=== PATIENT | male | born 1965 | race Two or more races ===

== ENCOUNTER 2020-03-23 10:00 | Emergency (ER) | payer SELFPAY ==
[~2020-03-23] VITALS: Ht 172.7 cm; Wt 77.1 kg
[2020-03-23] MEDS ORDERED: Thiamine HCl 100 MG in D5W 55 ML IVPB STA (10:08)
[2020-03-23 10:10] VITALS: BP 146/99
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
[2020-03-23] MEDS ORDERED: Bacitracin Oint UD TOPIC ONE (10:15)
[2020-03-23] MEDS ORDERED: Tetanus/Diptheria/Pertussis IM ONE (10:15)
--- NOTE | 2020-03-23 10:15 | NUR ---
ED Nurse Note: Patient was BIBA R [address] with ETOH complain. Patient presented with strong smell of alcohol, AAO x1, VSS at this time.
--- NOTE | 2020-03-23 10:25 | NUR ---
ED Nurse Note: IV line was established on right AC 20ga, blood and urine sent to lab
--- NOTE | 2020-03-23 11:15 | Diagnostic Imaging Report ---
Indications: Altered mental status Technique: Spiral acquisitions obtained through the brain. Angled axial and coronal 5 x 5 mm slices were reconstructed. Total dose length product 1040 mGycm. CTDI vol(s) 53 mGy. Dose reduction achieved using automated exposure control Comparison: None. Findings: There is a left convexity craniotomy/craniectomy defect. There is mild encephalomalacia of the anterior left temporal lobe. No acute intracranial hemorrhage or edema. No mass effect nor midline shift. Normal villegas-white differentiation. There is mild age-related enlargement of the ventricles and extra axial CSF spaces. The visualized orbits and sinuses are unremarkable. Impression: Postsurgical changes on the left. Negative for acute intracranial bleed or mass effect Mild age-related volume loss The CT scanner at [facility] is accredited by the [employer] and the scans are performed using protocols designed to limit radiation exposure to as low as reasonably achievable to attain images of sufficient resolution adequate for diagnostic evaluation.
[2020-03-23 11:25] LABS: APPEARANCE,URINE CLEAR; BILIRUBIN, URINE NEGATIVE (NEGATIVE); COLOR,URINE PALE YELLOW; GLUCOSE, URINE (UA) NEGATIVE (NEGATIVE); KETONES,URINE NEGATIVE (NEGATIVE); LEUKOCYTE ESTERASE ,URINE NEGATIVE (NEGATIVE); NITRITE,URINE NEGATIVE (NEGATIVE); PH,URINE 6 (4.5-8.0); PROTEIN,URINE 2+ (NEGATIVE); UROBILINOGEN,URINE NORMAL MG/DL (0.0-1.0)
[2020-03-23 11:28] LABS: HEMOGLOBIN 11.8 G/DL (14.2-18.0); MEAN CORPUSCULAR VOLUME 100 FL (80-99); PLATELET COUNT 97 K/UL (150-450); RED CELL DISTRIBUTION WIDTH 14.9 % (11.6-14.8); WHITE BLOOD COUNT 4.6 K/UL (4.8-10.8)
[2020-03-23 11:37] LABS: ANION GAP 9 mmol/L (5-15); BLOOD UREA NITROGEN 7 mg/dL (7-18); CALCIUM 8.1 MG/DL (8.5-10.1); CARBON DIOXIDE 30 MMOL/L (21-32); CHLORIDE 103 MMOL/L (98-107); CREATININE 0.7 MG/DL (0.55-1.30); POTASSIUM 3.4 MMOL/L (3.5-5.1); SODIUM 142 MMOL/L (136-145)
[2020-03-23 11:43] LABS: ALANINE AMINOTRANSFERASE 91 U/L (12-78); ALBUMIN 3.4 G/DL (3.4-5.0); ALBUMIN/GLOBULIN RATIO 0.9 (1.0-2.7); ALKALINE PHOSPHATASE 228 U/L (46-116); ASPARTATE AMINO TRANSFERASE 396 U/L (15-37); BILIRUBIN,TOTAL 0.8 MG/DL (0.2-1.0); CREATINE KINASE 176 U/L (26-308)
[2020-03-23 14:14] VITALS: BP 143/89
--- NOTE | 2020-03-23 14:14 | NUR ---
ED Nurse Note: Patient sleeping, VSS at this time, NAD noted
--- NOTE | 2020-03-23 16:33 | NUR ---
ED Nurse Note: Patient is awake, AAO x3, VSS at this time, able to walk with steady gait, asking for food.
--- NOTE | 2020-03-23 17:18 | NUR ---
ED Nurse Note: Patient awake, AAO x4, sandwiches and juices were provided
[2020-03-23 17:53] VITALS: BP 143/89
--- NOTE | 2020-03-23 17:54 | NUR ---
Homeless Discharge: Patient is being discharged from medical care. Awake, alert and oriented x3. After care instructions, including referral to community resources were given. Patient verbalized understanding of After care instructions; at this time patient does not request medications, equipment or placement. Patient signed patient consent in the medical record for patient destination upon discharge. All medical devices such as IV and ID band were removed. Patient ambulated out with all personal belongings with steady gait.
== END 2020-03-23 17:54 | disposition home or self-care (01) ==
LOC: EDBD 10:00 → EMR 10:25
DX: F10.929 Alcohol use, unspecified with intoxication, unspecified (principal); S09.93XA Unspecified injury of face, initial encounter; D61.818 Other pancytopenia; R79.89 Other specified abnormal findings of blood chemistry; R41.82 Altered mental status, unspecified; Z23 Encounter for immunization
CPT/HCPCS: 36415; 70450; 80053; 80307; 81003; 82550; 85007; 85025; 90471; 90715; 96361; 96365; 99284; G0480; J7030; U0002